=== PATIENT | male | born 1980 | race African-American/Black ===

== ENCOUNTER 2021-02-08 03:02 | Emergency (ER) | payer MEDICAID ==
[~2021-02-08] VITALS: Ht 190.5 cm; Wt 109.0 kg
[2021-02-08] MEDS: ACETAMINOPHEN 325MG TABLET PO ONE (03:57)
[2021-02-08] MEDS ORDERED: ACET650T37 MT (05:23)
[2021-02-08] MEDS ORDERED: IBUP-2029 MT (05:23)
[2021-02-08] MEDS ORDERED: MED4 MT (05:23)
[2021-02-08 05:41] VITALS: BP 115/66
== END 2021-02-08 06:06 | disposition home or self-care (01) ==
LOC: ER 03:02
DX: M79.674 Pain in right toe(s) (principal)
CPT/HCPCS: 73630; 99283; Z7610

== ENCOUNTER 2021-02-23 02:20 | Emergency (ER) | payer MEDICAID ==
[~2021-02-23] VITALS: Ht 175.3 cm; Wt 109.0 kg
[~2021-02-23 02:20] MED LIST: ACET650T37 MT; IBUP-2029 MT; MED4 MT
[2021-02-23 02:29] VITALS: BP 108/73
[2021-02-23] MEDS ORDERED: ACETAMINOPHEN 325MG TABLET PO ONE (03:00)
== END 2021-02-23 04:06 | disposition left against medical advice (07) ==
LOC: ER 02:20
DX: S92.491A Other fracture of right great toe, initial encounter for closed fracture (principal); X58.XXXA Exposure to other specified factors, initial encounter; Y93.01 Activity, walking, marching and hiking; Y92.89 Other specified places as the place of occurrence of the external cause
CPT/HCPCS: 73630; 99283